=== PATIENT | female | born 1995 | race African-American/Black ===

== ENCOUNTER 2017-11-30 22:12 | Inpatient (IN) ==
[2017-11-30] MEDS ORDERED: BUTORPHANOL 2 MG/ML VIAL IV PRN (22:25)
[2017-11-30] MEDS ORDERED: ONDANSETRON 4 MG/2 ML VIAL IV PRN (22:25)
[2017-11-30 22:45] LABS: Basophils % 0.1 % (0.0-0.8); Eosinophils % 0.2 % (0.00-10.9); Hematocrit 33.5 VOL% (35.7-47.0); Hemoglobin 10.1 GM/DL (12.0-16.0); Immature Granulocytes % 1.1 %; Lymphocytes # 1.2 10*3/uL (1.4-4.0); Lymphocytes % 13.6 % (21.3-54.2); Mean Corpuscular HGB Conc 30.1 GM/DL (32-36); Mean Corpuscular Hemoglobin 24 PG (27-34); Mean Corpuscular Volume 79.8 FL (87-102); Mean Platelet Volume 10.3 FL (9.6-12.0); Monocytes # 0.8 10*3/uL (0.11-0.8); Monocytes % 8.4 % (1.7-12.7); NRBC # 0.03 10*3/uL; Neutrophils # 6.9 10*3/uL (1.4-7.4); Neutrophils % 76.6 % (38.7-73.9); Platelet Count 296 T/CUMM (130-400); Red Cell Distribution Width 15.9 % (9.3-17.3); White Blood Count 9.1 T/CUMM (4-12)
[2017-11-30] MEDS: LACTATED RINGERS 1,000 ML IV SCH (23:27)
[2017-11-30 23:34] LABS: Albumin 2.3 G/DL (3.4-5.0); Bilirubin,Total 0.4 MG/DL (0.2-1.0); Calcium 8.9 MG/DL (8.5-10.1); Osmolality,Calculated 274.5 MOS/KG (273-304); Potassium 3.8 MMOL/L (3.5-5.1); Total Protein 7.1 G/DL (6.4-8.3)
[2017-11-30 23:48] LABS: Apearance,Urine CLOUDY (Clear); Bacteria,Urine Occasional /HPF (Few); Blood, Urine Negative (Negative); Glucose,Urine (UA) Negative (Negative); Ketones,Urine 5 mg/dL (Negative); Mucus,Urine Many /LPF (Occasional); Nitrite,Urine Negative (Negative); Protein,Urine 100 MG/DL; RBC,Urine 31 /HPF (0-4); Squamous Epithelial Cell,Urine Few /HPF (0-10); Urine Color Amber (Yellow); Urine Specific Gravity 1.028 (1.001-1.035); WBC,Urine 24 /HPF (0-6)
[2017-11-30 23:50] LABS: Bilirubin,Urine Small mg/dL (Negative)
[2017-12-01] MEDS: MEPERIDINE 50 MG/1 ML VIAL IV PRN ×2 (09:19→12:24)
[2017-12-01] MEDS ORDERED: AMPICILLIN INJ 2,000 MG in SODIUM CHLORIDE 0.9% 100 ML IV SCH (10:00)
[2017-12-01] MEDS: LACTATED RINGERS 1,000 ML IV SCH (12:05)
[2017-12-01] MEDS ORDERED: OXYTOCIN/LR 20 UNIT/1,000 ML BAG IV ONE ×2 (12:40→13:13)
[2017-12-01] MEDS ORDERED: LIDOCAINE 1% 50 ML VIAL ONE (13:00)
[2017-12-01] MEDS ORDERED: RHO(D) IMMUNE GLOBULIN 300 MCG SYRINGE IM ONE (13:13)
[2017-12-01] MEDS ORDERED: MEASLES/MUMPS/RUBELLA VACCINE 0.5 ML VIAL SUBCUT ONE (13:13)
[2017-12-01] MEDS ORDERED: ACETAMINOPHEN 325 MG TABLET PO PRN (13:13)
[2017-12-01] MEDS ORDERED: DIPH/TET/ACEL PERT BOOSTER VACCINE 0.5 ML VIAL IM ONE (13:13)
[2017-12-01] MEDS ORDERED: WITCH HAZEL PADS 100/JAR TOP PRN (13:13)
[2017-12-01] MEDS ORDERED: LANOLIN 50% CREAM 0.3 OZ TUBE TOP PRN (13:13)
[2017-12-01] MEDS ORDERED: HYDROCORTISONE 2.5% RECTAL CREAM 30 GM TUBE TOP PRN (13:13)
[2017-12-01] MEDS ORDERED: BISACODYL 10 MG SUPP RECTAL PRN (13:13)
[2017-12-01] MEDS ORDERED: oxyCODONE/ACETAMINOPHEN 5-325 MG TABLET PO PRN (13:13)
[2017-12-01] MEDS ORDERED: BENZOCAINE 20%/MENTHOL 0.5% SPRAY 56 GM CAN TOP PRN (13:13)
[2017-12-01] MEDS ORDERED: ONDANSETRON 4 MG/2 ML VIAL IV PRN (13:13)
[2017-12-01 13:26] LABS: Cord Arterial Blood HCO3 18.6 MMOL/L
[2017-12-01 13:29] LABS: Cord Venous Blood HCO3 20.6 MMOL/L; Cord Venous Blood PO2 20.9
[2017-12-01] MEDS: oxyCODONE/ACETAMINOPHEN 5-325 MG TABLET PO PRN (17:09)
[2017-12-01] MEDS: IBUPROFEN 800 MG TABLET PO PRN (17:10)
[2017-12-01] MEDS: DOCUSATE SODIUM 100 MG CAPSULE PO SCH (20:52)
[2017-12-02 07:09] LABS: Basophils % 0.1 % (0.0-0.8); Eosinophils # 0.1 10*3/uL (0.0-0.87); Eosinophils % 0.6 % (0.00-10.9); Hematocrit 32.1 VOL% (35.7-47.0); Hemoglobin 9.7 GM/DL (12.0-16.0); Immature Granulocytes % 0.8 %; Immature Granulocytes Absolute 0.11 #; Lymphocytes # 2.1 10*3/uL (1.4-4.0); Lymphocytes % 15.9 % (21.3-54.2); Mean Corpuscular HGB Conc 30.2 GM/DL (32-36); Mean Corpuscular Hemoglobin 24 PG (27-34); Mean Corpuscular Volume 79.1 FL (87-102); Monocytes # 1.4 10*3/uL (0.11-0.8); Monocytes % 10.5 % (1.7-12.7); NRBC # 0.03 10*3/uL; Neutrophils # 9.6 10*3/uL (1.4-7.4); Neutrophils % 72.1 % (38.7-73.9); Platelet Count 260 T/CUMM (130-400); Red Blood Count 4.06 MC/CUMM (3.8-5.5); Red Cell Distribution Width 15.8 % (9.3-17.3); White Blood Count 13.4 T/CUMM (4-12)
[2017-12-02] MEDS: IBUPROFEN 800 MG TABLET PO PRN ×2 (07:38→22:06)
[2017-12-02] MEDS: oxyCODONE/ACETAMINOPHEN 5-325 MG TABLET PO PRN ×2 (07:39→22:07)
[2017-12-02] MEDS: DOCUSATE SODIUM 100 MG CAPSULE PO SCH ×2 (09:20→22:06)
[2017-12-03 07:19] VITALS: BP 123/69
[2017-12-03] MEDS: DOCUSATE SODIUM 100 MG CAPSULE PO SCH (09:43)
== END 2017-12-03 14:05 | disposition home or self-care (01) | DRG 560 ==
LOC: N.LDOUT 22:12 → N.LD 22:14 → N.OB 12-01 16:33
PROVIDERS: ADMIT Specialist; ATTEND Specialist

== ENCOUNTER 2018-09-21 12:45 | Inpatient (IN) ==
[2018-09-21] MEDS ORDERED: ceFAZolin 3,000 MG in SYRINGE 1 EACH IV ONE (13:15)
[2018-09-21] MEDS ORDERED: CITRIC ACID/SODIUM CITRATE 30 ML UDCUP PO ONE ×2 (13:15→13:22)
[2018-09-21] MEDS ORDERED: OXYTOCIN/LR 20 UNIT/1,000 ML BAG IV ONE ×2 (13:22→15:45)
[2018-09-21] MEDS ORDERED: LACTATED RINGERS 1,000 ML IV ONE ×2 (13:22→15:16)
[2018-09-21] MEDS ORDERED: FAMOTIDINE 20 MG/2 ML VIAL IV ONE (13:22)
[2018-09-21] MEDS ORDERED: LACTATED RINGERS 1,000 ML IV SCH ×2 (13:30)
[2018-09-21 13:53] LABS: Basophils % 0.2 % (0.0-0.8); Eosinophils % 0.5 % (0.00-10.9); Hematocrit 30.3 VOL% (35.7-47.0); Hemoglobin 8.7 GM/DL (12.0-16.0); Immature Granulocytes % 0.7 %; Immature Granulocytes Absolute 0.06 #; Lymphocytes # 1.3 10*3/uL (1.4-4.0); Lymphocytes % 15.8 % (21.3-54.2); Mean Corpuscular HGB Conc 28.7 GM/DL (32-36); Mean Corpuscular Hemoglobin 22 PG (27-34); Mean Corpuscular Volume 77.7 FL (87-102); Mean Platelet Volume 10.5 FL (9.6-12.0); Monocytes # 0.9 10*3/uL (0.11-0.8); Monocytes % 10.4 % (1.7-12.7); NRBC # 0.03 10*3/uL; Neutrophils # 6.1 10*3/uL (1.4-7.4); Neutrophils % 72.4 % (38.7-73.9); Platelet Count 247 T/CUMM (130-400); Red Cell Distribution Width 16.4 % (9.3-17.3); White Blood Count 8.4 T/CUMM (4-12)
[2018-09-21] MEDS ORDERED: SODIUM CHLORIDE 0.9% 1,000 ML IV PRN (13:57)
[2018-09-21 14:19] LABS: Albumin 2.4 G/DL (3.4-5.0); Bilirubin,Total 0.6 MG/DL (0.2-1.0); Calcium 8.6 MG/DL (8.5-10.1); Osmolality,Calculated 268.8 MOS/KG (273-304); Potassium 3.7 MMOL/L (3.5-5.1); Total Protein 6.8 G/DL (6.4-8.3)
[2018-09-21] MEDS ORDERED: MORPHINE 10 MG/10 ML VIAL ONE (15:15)
[2018-09-21] MEDS ORDERED: fentaNYL 100 MCG/2 ML VIAL ONE (15:15)
[2018-09-21] MEDS ORDERED: BUPIVACAINE SPINAL 0.75% 2 ML AMP SPINAL ONE (15:15)
[2018-09-21] MEDS ORDERED: ONDANSETRON 4 MG/2 ML VIAL ONE (15:16)
[2018-09-21] MEDS ORDERED: PHENYLEPHRINE 10 MG/1 ML VIAL IV ONE (15:16)
[2018-09-21] MEDS ORDERED: SODIUM CHLORIDE 0.9% 1,000 ML IV ONE (15:16)
[2018-09-21] MEDS ORDERED: ACETAMINOPHEN 1,000 MG/100 ML VIAL IV ONE (15:16)
[2018-09-21] MEDS ORDERED: METHYLERGONOVINE 0.2 MG/1 ML AMP ONE (15:18)
[2018-09-21 15:32] LABS: Cord Arterial Blood HCO3 23.2 MMOL/L
[2018-09-21] MEDS ORDERED: ACETAMINOPHEN 325 MG TABLET PO PRN (15:45)
[2018-09-21] MEDS ORDERED: HYDROCORTISONE 2.5% RECTAL CREAM 30 GM TUBE TOP PRN (15:45)
[2018-09-21] MEDS ORDERED: oxyCODONE/ACETAMINOPHEN 5-325 MG TABLET PO PRN (15:45)
[2018-09-21] MEDS ORDERED: BISACODYL 10 MG SUPP RECTAL PRN (15:45)
[2018-09-21] MEDS ORDERED: ONDANSETRON 4 MG/2 ML VIAL IV PRN (15:45)
[2018-09-21] MEDS ORDERED: MEASLES/MUMPS/RUBELLA VACCINE 0.5 ML VIAL SUBCUT ONE (15:45)
[2018-09-21] MEDS ORDERED: LANOLIN 50% CREAM 0.3 OZ TUBE TOP PRN (15:45)
[2018-09-21] MEDS ORDERED: WITCH HAZEL PADS 100/JAR TOP PRN (15:45)
[2018-09-21] MEDS ORDERED: BENZOCAINE 20%/MENTHOL 0.5% SPRAY 56 GM CAN TOP PRN (15:45)
[2018-09-21] MEDS ORDERED: DIPH/TET/ACEL PERT BOOSTER VACCINE 0.5 ML VIAL IM ONE (15:45)
[2018-09-21] MEDS ORDERED: RHO(D) IMMUNE GLOBULIN 300 MCG SYRINGE IM ONE (15:45)
[2018-09-21 15:46] LABS: Apearance,Urine Slightly Hazy (Clear); Bilirubin,Urine Negative (Negative); Blood, Urine Moderate mg/dL (Negative); Calcium Oxalate Crystals,Urine Occasional /HPF (Few); Glucose,Urine (UA) Negative (Negative); Ketones,Urine 80 mg/dL (Negative); Mucus,Urine Many /LPF (Occasional); Nitrite,Urine Negative (Negative); Protein,Urine 30 MG/DL; RBC,Urine 79 /HPF (0-4); Squamous Epithelial Cell,Urine Occasional /HPF (0-10); Urine Specific Gravity 1.023 (1.001-1.035); WBC,Urine 6 /HPF (0-6)
[2018-09-21 15:47] LABS: Urine Color Yellow (Yellow)
[2018-09-21 15:51] LABS: Microcytosis 1+; Polychromasia Few
[2018-09-21 15:52] LABS: Hypochromasia 2+; Platelet Estimate Normal
[2018-09-21 15:53] LABS: Anisocytosis 1+
[2018-09-21 15:56] LABS: Cord Arterial Blood HCO3 23.8 MMOL/L
[2018-09-21] MEDS ORDERED: diphenhydrAMINE 50 MG/1 ML VIAL IV PRN (18:28)
[2018-09-21] MEDS: ceFAZolin 1,000 MG in SYRINGE 1 EACH IV SCH (21:39)
[2018-09-21 22:11] LABS: Basophils % 0.2 % (0.0-0.8); Eosinophils % 0.1 % (0.00-10.9); Hematocrit 30.9 VOL% (35.7-47.0); Hemoglobin 8.8 GM/DL (12.0-16.0); Immature Granulocytes % 0.8 %; Immature Granulocytes Absolute 0.12 #; Lymphocytes # 1.3 10*3/uL (1.4-4.0); Lymphocytes % 8.7 % (21.3-54.2); Mean Corpuscular HGB Conc 28.5 GM/DL (32-36); Mean Corpuscular Hemoglobin 23 PG (27-34); Mean Corpuscular Volume 80.3 FL (87-102); Mean Platelet Volume 10.3 FL (9.6-12.0); Monocytes # 1.4 10*3/uL (0.11-0.8); Monocytes % 9.3 % (1.7-12.7); NRBC # 0.03 10*3/uL; Neutrophils % 80.9 % (38.7-73.9); Platelet Count 209 T/CUMM (130-400); Red Blood Count 3.85 MC/CUMM (3.8-5.5); Red Cell Distribution Width 16.3 % (9.3-17.3); White Blood Count 14.8 T/CUMM (4-12)
[2018-09-21] MEDS: DOCUSATE SODIUM 100 MG CAPSULE PO SCH (22:40)
[2018-09-21 22:44] LABS: Anisocytosis 1+; Hypochromasia 1+; Polychromasia Slight
[2018-09-21 22:45] LABS: Platelet Estimate Normal
[2018-09-21] MEDS ORDERED: diphenhydrAMINE 50 MG/1 ML VIAL ONE (23:37)
[2018-09-22] MEDS: diphenhydrAMINE 50 MG/1 ML VIAL IV PRN ×2 (00:22→04:50)
[2018-09-22] MEDS: oxyCODONE/ACETAMINOPHEN 5-325 MG TABLET PO PRN ×3 (04:50→18:39)
[2018-09-22] MEDS: IBUPROFEN 800 MG TABLET PO PRN ×3 (04:50→18:39)
[2018-09-22 05:19] LABS: Basophils % 0.1 % (0.0-0.8); Eosinophils % 0.1 % (0.00-10.9); Hematocrit 26.7 VOL% (35.7-47.0); Hemoglobin 7.9 GM/DL (12.0-16.0); Immature Granulocytes % 0.9 %; Immature Granulocytes Absolute 0.12 #; Lymphocytes # 1.4 10*3/uL (1.4-4.0); Lymphocytes % 9.7 % (21.3-54.2); Mean Corpuscular HGB Conc 29.6 GM/DL (32-36); Mean Corpuscular Hemoglobin 24 PG (27-34); Mean Corpuscular Volume 79.5 FL (87-102); Monocytes # 1.6 10*3/uL (0.11-0.8); Monocytes % 11.4 % (1.7-12.7); NRBC # 0.03 10*3/uL; Neutrophils # 10.8 10*3/uL (1.4-7.4); Neutrophils % 77.8 % (38.7-73.9); Platelet Count 190 T/CUMM (130-400); Red Blood Count 3.36 MC/CUMM (3.8-5.5); Red Cell Distribution Width 16.2 % (9.3-17.3); White Blood Count 13.9 T/CUMM (4-12)
[2018-09-22] MEDS: ceFAZolin 1,000 MG in SYRINGE 1 EACH IV SCH (06:28)
[2018-09-22] MEDS ORDERED: HydrOXYzine PAMOATE 25 MG CAPSULE PO PRN (08:20)
[2018-09-22] MEDS: DOCUSATE SODIUM 100 MG CAPSULE PO SCH ×2 (10:00→21:51)
[2018-09-22] MEDS: SIMETHICONE CHEW 80 MG TABLET PO PRN (11:18)
[2018-09-22] MEDS: MAGNESIUM HYDROXIDE SUSP 30 ML UDCUP PO PRN ×2 (11:18→21:51)
[2018-09-22] MEDS: FERROUS SULFATE 325 MG TABLET PO SCH ×2 (15:46→21:51)
[2018-09-23] MEDS: oxyCODONE/ACETAMINOPHEN 5-325 MG TABLET PO PRN ×4 (03:42→21:23)
[2018-09-23] MEDS: SIMETHICONE CHEW 80 MG TABLET PO PRN (08:14)
[2018-09-23] MEDS: MAGNESIUM HYDROXIDE SUSP 30 ML UDCUP PO PRN ×2 (08:14→21:20)
[2018-09-23] MEDS: IBUPROFEN 800 MG TABLET PO PRN ×2 (08:14→14:14)
[2018-09-23] MEDS: FERROUS SULFATE 325 MG TABLET PO SCH ×2 (08:14→21:20)
[2018-09-23] MEDS: DOCUSATE SODIUM 100 MG CAPSULE PO SCH ×2 (08:14→21:20)
[2018-09-23] MEDS ORDERED: oxyCODONE/ACETAMINOPHEN 5-325 MG TABLET PO PRN (08:17)
[2018-09-24] MEDS: oxyCODONE/ACETAMINOPHEN 5-325 MG TABLET PO PRN ×2 (03:00→09:11)
[2018-09-24 08:29] VITALS: BP 132/69
[2018-09-24] MEDS: DOCUSATE SODIUM 100 MG CAPSULE PO SCH (09:04)
[2018-09-24] MEDS: SIMETHICONE CHEW 80 MG TABLET PO PRN (09:05)
[2018-09-24] MEDS: MAGNESIUM HYDROXIDE SUSP 30 ML UDCUP PO PRN (09:06)
[2018-09-24] MEDS: FERROUS SULFATE 325 MG TABLET PO SCH (09:06)
[2018-09-24] MEDS: IBUPROFEN 800 MG TABLET PO PRN (09:09)
== END 2018-09-24 14:32 | disposition home or self-care (01) | DRG 540 ==
LOC: N.LDOUT 12:45 → N.LD 12:48 → N.OB 19:20
PROVIDERS: ADMIT Specialist; ATTEND Specialist
PROC: LDCSECT (ICD-10-PCS; 2018-09-21 14:00)

== ENCOUNTER 2020-03-11 02:38 | Inpatient (IN) ==
[2020-03-11 03:04] LABS: Basophils % 0.2 % (0.0-0.8); Eosinophils # 0.1 10*3/uL (0.0-0.87); Eosinophils % 0.6 % (0.00-10.9); Immature Granulocytes % 0.5 %; Immature Granulocytes Absolute 0.05 #; Lymphocytes # 2.1 10*3/uL (1.4-4.0); Lymphocytes % 20.5 % (21.3-54.2); Mean Corpuscular HGB Conc 28.2 GM/DL (32-36); Mean Corpuscular Volume 77.3 FL (87-102); Mean Platelet Volume 9.8 FL (9.6-12.0); Monocytes % 9.4 % (1.7-12.7); NRBC # 0.03 10*3/uL; Neutrophils % 68.8 % (38.7-73.9); Platelet Count 283 T/CUMM (130-400); Red Cell Distribution Width 16.4 % (9.3-17.3)
[2020-03-11] MEDS ORDERED: DILTIAZEM 50 MG/10 ML VIAL IV STA (03:10)
[2020-03-11] MEDS ORDERED: SODIUM CHLORIDE 0.9% 1,000 ML IV STA (03:11)
[2020-03-11 03:13] LABS: Hematocrit 33.6 VOL% (35.7-47.0); Hemoglobin 9.7 GM/DL (12.0-16.0)
[2020-03-11 03:24] LABS: INR 0.9; PT Patient Result 9.9 SECS (9.8-11.9); Partial Thromboplastin Time 26.4 SECS (23.9-33.8)
[2020-03-11 03:28] LABS: Alanine Aminotransferase 25 U/L (13-56); Albumin 2.5 G/DL (3.4-5.0); Alkaline Phosphatase 181 U/L (45-117); Aspartate Amino Transferase 16 U/L (0-37); Bilirubin,Total < 0.39 MG/DL (0.2-1.0); Blood Urea Nitrogen 8 MG/DL (7-18); Calcium 8.9 MG/DL (8.5-10.1); Estimated Glom Filtration Rate 214 ML/MIN; Glucose 124 MG/DL (74-106); Osmolality,Calculated 275.5 MOS/KG (273-304); Total Protein 6.8 G/DL (6.4-8.3)
[2020-03-11] MEDS ORDERED: DILTIAZEM INJ 100 MG in SODIUM CHLORIDE 0.9% 100 ML IV SCH (03:30)
[2020-03-11] MEDS ORDERED: ONDANSETRON 4 MG/2 ML VIAL ONE (03:53)
[2020-03-11] MEDS ORDERED: ONDANSETRON 4 MG/2 ML VIAL IV STA ×2 (03:58→04:34)
[2020-03-11] MEDS ORDERED: MIDAZOLAM 2 MG/2 ML VIAL IV STA (04:33)
[2020-03-11] MEDS ORDERED: MORPHINE 4 MG/1 ML VIAL IV STA (04:34)
[2020-03-11] MEDS ORDERED: LABETALOL 20 MG/4 ML SYRINGE IV ONE (04:43)
[2020-03-11] MEDS ORDERED: LABETALOL 20 MG/4 ML SYRINGE IV STA (04:43)
[2020-03-11] MEDS ORDERED: ONDANSETRON 4 MG/2 ML VIAL IV PRN ×2 (05:04→05:11)
[2020-03-11] MEDS ORDERED: ACETAMINOPHEN 325 MG TABLET PO PRN (05:11)
[2020-03-11 05:43] LABS: Bacteria,Urine Few /HPF (Few); Bilirubin,Urine Negative (Negative); Blood, Urine Negative (Negative); Glucose,Urine (UA) Negative (Negative); Ketones,Urine 5 mg/dL (Negative); Mucus,Urine Many /LPF (Occasional); Nitrite,Urine Negative (Negative); Protein,Urine 30 MG/DL; RBC,Urine 10 /HPF (0-4); Squamous Epithelial Cell,Urine Occasional /HPF (0-10); Urine Appearance Slightly Hazy (Clear); Urine Color Yellow (Yellow); Urine Specific Gravity 1.025 (1.001-1.035); WBC,Urine 6 /HPF (0-6)
[2020-03-11 05:49] LABS: Barbiturates Screen,Urine Negative (Negative); Benzodiazepines Screen,Urine Positive (Negative); Cannabinoid Screen,Urine Negative (Negative); Opiate Screen,Urine Positive (Negative); Phencyclidine Screen,Urine Negative (Negative)
[2020-03-11] MEDS: SODIUM CHLORIDE 0.9% 1,000 ML IV SCH ×2 (05:57→13:17)
[2020-03-11] MEDS: METOPROLOL TARTRATE 25 MG TABLET PO SCH ×2 (09:44→21:03)
[2020-03-11] MEDS: PANTOPRAZOLE 40 MG TABLET PO SCH (17:43)
[2020-03-12] MEDS: SODIUM CHLORIDE 0.9% 1,000 ML IV SCH ×2 (02:31→09:24)
[2020-03-12 07:18] LABS: Basophils % 0.2 % (0.0-0.8); Calcium 8.4 MG/DL (8.5-10.1); Eosinophils # 0.1 10*3/uL (0.0-0.87); Eosinophils % 1.2 % (0.00-10.9); Hematocrit 28.8 VOL% (35.7-47.0); Immature Granulocytes % 0.6 %; Immature Granulocytes Absolute 0.05 #; Lymphocytes # 1.9 10*3/uL (1.4-4.0); Lymphocytes % 22.2 % (21.3-54.2); Mean Corpuscular HGB Conc 29.2 GM/DL (32-36); Mean Platelet Volume 9.8 FL (9.6-12.0); NRBC # 0.03 10*3/uL; Neutrophils % 64.8 % (38.7-73.9); Osmolality,Calculated 271.7 MOS/KG (273-304); Platelet Count 234 T/CUMM (130-400); Red Blood Count 3.79 MC/CUMM (3.8-5.5); Red Cell Distribution Width 16.7 % (9.3-17.3); White Blood Count 8.5 T/CUMM (4-12)
[2020-03-12 07:19] LABS: Hemoglobin 8.4 GM/DL (12.0-16.0)
[2020-03-12 07:26] LABS: Hypochromasia 1+; Microcytosis 1+; Platelet Estimate Adequate
[2020-03-12 08:13] VITALS: BP 101/58
[2020-03-12] MEDS ORDERED: MED PO SCH (09:00)
[2020-03-12] MEDS ORDERED: ASPIRIN EC 81 MG TABLET PO SCH (09:00)
[2020-03-12] MEDS ORDERED: METOPROLOL TARTRATE 25 MG TABLET PO SCH (09:00)
[2020-03-12] MEDS: PANTOPRAZOLE 40 MG TABLET PO SCH (09:26)
== END 2020-03-12 13:33 | disposition home or self-care (01) | DRG 566 ==
LOC: N.ED 02:38 → N.EDINP 05:10 → N.ICU 05:30 → N.TELEN 13:23
PROVIDERS: ADMIT Specialist; ATTEND Specialist

== ENCOUNTER 2020-04-14 04:23 | Inpatient (IN) ==
[2020-04-14] MEDS ORDERED: ONDANSETRON 4 MG/2 ML VIAL IV PRN ×2 (04:58→09:23)
[2020-04-14] MEDS ORDERED: BUTORPHANOL 2 MG/ML VIAL IV PRN (04:58)
[2020-04-14] MEDS ORDERED: MEPERIDINE 50 MG/1 ML VIAL IV PRN (04:58)
[2020-04-14] MEDS: LACTATED RINGERS 1,000 ML IV SCH ×2 (05:00→13:40)
[2020-04-14 05:20] LABS: Basophils % 0.2 % (0.0-0.8); Eosinophils # 0.1 10*3/uL (0.0-0.87); Eosinophils % 0.5 % (0.00-10.9); Hematocrit 30.3 VOL% (35.7-47.0); Hemoglobin 8.8 GM/DL (12.0-16.0); Immature Granulocytes % 1.1 %; Lymphocytes # 1.6 10*3/uL (1.4-4.0); Lymphocytes % 17.3 % (21.3-54.2); Mean Corpuscular Volume 74.4 FL (87-102); Mean Platelet Volume 9.6 FL (9.6-12.0); Monocytes % 11.4 % (1.7-12.7); NRBC # 0.08 10*3/uL; Neutrophils % 69.5 % (38.7-73.9); Platelet Count 266 T/CUMM (130-400); Red Blood Count 4.07 MC/CUMM (3.8-5.5); Red Cell Distribution Width 17.9 % (9.3-17.3); White Blood Count 9.4 T/CUMM (4-12)
[2020-04-14] MEDS ORDERED: CITRIC ACID/SODIUM CITRATE 30 ML UDCUP PO PRN (05:26)
[2020-04-14] MEDS ORDERED: FAMOTIDINE 20 MG/2 ML VIAL IV PRN (05:27)
[2020-04-14] MEDS ORDERED: ceFAZolin 3,000 MG in SYRINGE 1 EACH IV PRN (05:28)
[2020-04-14 05:41] LABS: Albumin 2.2 G/DL (3.4-5.0); Bilirubin,Total 0.4 MG/DL (0.2-1.0); Calcium 8.7 MG/DL (8.5-10.1); Osmolality,Calculated 273.7 MOS/KG (273-304)
[2020-04-14] MEDS ORDERED: ePHEDrine 50 MG/ML VIAL ONE (06:05)
[2020-04-14] MEDS ORDERED: fentaNYL 2 MCG/ROPIV 0.2% EPID 100 ML EPIDURAL ONE (06:06)
[2020-04-14] MEDS ORDERED: fentaNYL 2 MCG/ROPIV 0.2% EPID 100 ML EPIDURAL SCH (06:40)
[2020-04-14] MEDS ORDERED: TRANEXAMIC ACID 1,000 MG/10 ML VIAL ONE ×3 (08:24→08:45)
[2020-04-14] MEDS ORDERED: miSOPROStoL 200 MCG TABLET ONE ×2 (08:24→08:43)
[2020-04-14] MEDS ORDERED: SODIUM CHLORIDE 0.9% 0 ML IV ONE ×2 (08:25→08:45)
[2020-04-14] MEDS ORDERED: OXYTOCIN/LR 20 UNIT/1,000 ML BAG IV ONE ×2 (08:43→09:23)
[2020-04-14] MEDS ORDERED: METHYLERGONOVINE 0.2 MG/1 ML AMP ONE (08:43)
[2020-04-14] MEDS ORDERED: CARBOPROST TROMETHAMINE 250 MCG/ML AMP IM ONE (08:44)
[2020-04-14] MEDS ORDERED: MEASLES/MUMPS/RUBELLA VACCINE 0.5 ML VIAL SUBCUT ONE (09:23)
[2020-04-14] MEDS ORDERED: RHO(D) IMMUNE GLOBULIN 300 MCG SYRINGE IM ONE (09:23)
[2020-04-14] MEDS ORDERED: HYDROCORTISONE 2.5% RECTAL CREAM 30 GM TUBE TOP PRN (09:23)
[2020-04-14] MEDS ORDERED: BENZOCAINE 20%/MENTHOL 0.5% SPRAY 56 GM CAN TOP PRN (09:23)
[2020-04-14] MEDS ORDERED: WITCH HAZEL PADS 100/JAR TOP PRN (09:23)
[2020-04-14] MEDS ORDERED: LANOLIN 50% CREAM 0.3 OZ TUBE TOP PRN (09:23)
[2020-04-14] MEDS ORDERED: BISACODYL 10 MG SUPP RECTAL PRN (09:23)
[2020-04-14] MEDS ORDERED: ACETAMINOPHEN 325 MG TABLET PO PRN (09:23)
[2020-04-14] MEDS ORDERED: DIPH/TET/ACEL PERT BOOSTER VACCINE 0.5 ML VIAL IM ONE (09:23)
[2020-04-14] MEDS ORDERED: oxyCODONE/ACETAMINOPHEN 5-325 MG TABLET PO PRN (09:23)
[2020-04-14 09:25] LABS: Cord Arterial Blood HCO3 20.8 MMOL/L
[2020-04-14 09:26] LABS: Bilirubin,Urine Negative (Negative); Blood, Urine Negative (Negative); Glucose,Urine (UA) Negative (Negative); Ketones,Urine Negative (Negative); Mucus,Urine Few /LPF (Occasional); Nitrite,Urine Negative (Negative); Protein,Urine 30 MG/DL; RBC,Urine <1 /HPF (0-4); Urine Appearance CLEAR (Clear); Urine Color Yellow (Yellow); Urine Specific Gravity 1.024 (1.001-1.035); WBC,Urine <1 /HPF (0-6)
[2020-04-14 09:29] LABS: Cord Venous Blood HCO3 21.1 MMOL/L; Cord Venous Blood PCO2 40.1 MMHG; Cord Venous Blood PO2 26.7
[2020-04-14 09:32] LABS: Cord Venous Blood HCO3 18.1 MMOL/L; Cord Venous Blood PCO2 63.9 MMHG; Cord Venous Blood PO2 21.4
[2020-04-14] MEDS ORDERED: hydrOXYzine HCL 25 MG/1 ML VIAL IM ONE (10:05)
[2020-04-14] MEDS: METOPROLOL TARTRATE 50 MG TABLET PO SCH ×2 (12:28→23:27)
[2020-04-14] MEDS: oxyCODONE/ACETAMINOPHEN 5-325 MG TABLET PO PRN ×2 (13:20→21:08)
[2020-04-14] MEDS: IBUPROFEN 800 MG TABLET PO PRN (18:15)
[2020-04-14] MEDS: DOCUSATE SODIUM 100 MG CAPSULE PO SCH (21:08)
[2020-04-15 05:37] LABS: Basophils % 0.3 % (0.0-0.8); Eosinophils # 0.2 10*3/uL (0.0-0.87); Eosinophils % 1.5 % (0.00-10.9); Hematocrit 29.6 VOL% (35.7-47.0); Immature Granulocytes % 0.6 %; Immature Granulocytes Absolute 0.08 #; Lymphocytes # 2.4 10*3/uL (1.4-4.0); Lymphocytes % 19.4 % (21.3-54.2); Mean Corpuscular HGB Conc 29.1 GM/DL (32-36); Mean Corpuscular Volume 75.3 FL (87-102); Mean Platelet Volume 9.9 FL (9.6-12.0); Monocytes % 9.8 % (1.7-12.7); NRBC # 0.02 10*3/uL; Neutrophils % 68.4 % (38.7-73.9); Platelet Count 231 T/CUMM (130-400); Red Blood Count 3.93 MC/CUMM (3.8-5.5); Red Cell Distribution Width 18.2 % (9.3-17.3); White Blood Count 12.4 T/CUMM (4-12)
[2020-04-15 05:38] LABS: Hemoglobin 8.6 GM/DL (12.0-16.0)
[2020-04-15 05:46] LABS: Hypochromasia 1+; Microcytosis 1+; Platelet Estimate Adequate
[2020-04-15] MEDS: oxyCODONE/ACETAMINOPHEN 5-325 MG TABLET PO PRN ×3 (06:13→22:40)
[2020-04-15] MEDS: METOPROLOL TARTRATE 50 MG TABLET PO SCH ×2 (08:42→21:00)
[2020-04-15] MEDS: DOCUSATE SODIUM 100 MG CAPSULE PO SCH ×2 (08:42→21:00)
[2020-04-15] MEDS: IBUPROFEN 800 MG TABLET PO PRN (22:40)
[2020-04-16] MEDS: DOCUSATE SODIUM 100 MG CAPSULE PO SCH (07:59)
[2020-04-16] MEDS: METOPROLOL TARTRATE 50 MG TABLET PO SCH (08:00)
[2020-04-16] MEDS: oxyCODONE/ACETAMINOPHEN 5-325 MG TABLET PO PRN (08:00)
[2020-04-16] MEDS: IBUPROFEN 800 MG TABLET PO PRN (08:01)
[2020-04-16 08:22] VITALS: BP 136/85
== END 2020-04-16 14:00 | disposition home or self-care (01) | DRG 560 ==
LOC: N.LDOUT 04:23 → N.LD 04:26 → N.OB 12:59
PROVIDERS: ADMIT Specialist; ATTEND Specialist

== ENCOUNTER 2021-04-23 11:18 | Inpatient (IN) ==
[2021-04-23] MEDS ORDERED: BUTORPHANOL 2 MG/ML VIAL IV ONE (11:40)
[2021-04-23] MEDS ORDERED: CARBOPROST TROMETHAMINE 250 MCG/ML AMP IM ONE (11:41)
[2021-04-23] MEDS ORDERED: OXYTOCIN/LR 20 UNIT/1,000 ML BAG IV ONE ×2 (11:41→12:57)
[2021-04-23] MEDS ORDERED: TRANEXAMIC ACID 1,000 MG/10 ML VIAL ONE (11:41)
[2021-04-23] MEDS ORDERED: miSOPROStoL 200 MCG TABLET ONE (11:41)
[2021-04-23] MEDS ORDERED: METHYLERGONOVINE 0.2 MG/1 ML AMP ONE (11:41)
[2021-04-23] MEDS ORDERED: SODIUM CHLORIDE 0.9% 0 ML IV ONE (11:41)
[2021-04-23] MEDS ORDERED: MEPERIDINE 50 MG/1 ML VIAL IV ONE (12:03)
[2021-04-23 12:05] LABS: Cord Venous Blood HCO3 22.7 MMOL/L; Cord Venous Blood PCO2 43.4 MMHG; Cord Venous Blood PO2 26.3 MMHG
[2021-04-23] MEDS ORDERED: ONDANSETRON 4 MG/2 ML VIAL IV PRN ×2 (12:34→12:57)
[2021-04-23] MEDS ORDERED: ACETAMINOPHEN 325 MG TABLET PO PRN (12:57)
[2021-04-23] MEDS ORDERED: RHO(D) IMMUNE GLOBULIN 300 MCG SYRINGE IM ONE (12:57)
[2021-04-23] MEDS ORDERED: MEASLES/MUMPS/RUBELLA VACCINE 0.5 ML VIAL SUBCUT ONE (12:57)
[2021-04-23] MEDS ORDERED: BENZOCAINE 20%/MENTHOL 0.5% SPRAY 56 GM CAN TOP PRN (12:57)
[2021-04-23] MEDS ORDERED: BISACODYL 10 MG SUPP RECTAL PRN (12:57)
[2021-04-23] MEDS ORDERED: HYDROCORTISONE 2.5% RECTAL CREAM 30 GM TUBE TOP PRN (12:57)
[2021-04-23] MEDS ORDERED: oxyCODONE/ACETAMINOPHEN 5-325 MG TABLET PO PRN (12:57)
[2021-04-23] MEDS ORDERED: DIPH/TET/ACEL PERT BOOSTER VACCINE 0.5 ML VIAL IM ONE (12:57)
[2021-04-23] MEDS ORDERED: WITCH HAZEL PADS 100/JAR TOP PRN (12:57)
[2021-04-23] MEDS ORDERED: LANOLIN 50% CREAM 0.3 OZ TUBE TOP PRN (12:57)
[2021-04-23] MEDS ORDERED: LACTATED RINGERS 1,000 ML IV SCH (13:00)
[2021-04-23 13:31] LABS: Basophils % 0.2 % (0.0-0.8); Eosinophils % 0.1 % (0.00-10.9); Hematocrit 34.4 VOL% (35.7-47.0); Immature Granulocytes % 0.8 %; Immature Granulocytes Absolute 0.11 #; Lymphocytes # 1.1 10*3/uL (1.4-4.0); Lymphocytes % 8.4 % (21.3-54.2); Mean Corpuscular HGB Conc 29.1 GM/DL (32-36); Mean Corpuscular Volume 79.4 FL (87-102); Mean Platelet Volume 9.8 FL (9.6-12.0); Monocytes % 5.7 % (1.7-12.7); Neutrophils % 84.8 % (38.7-73.9); Platelet Count 287 T/CUMM (130-400); Red Blood Count 4.33 MC/CUMM (3.8-5.5); Red Cell Distribution Width 16.6 % (9.3-17.3); White Blood Count 13.3 T/CUMM (4-12)
[2021-04-23] MEDS: IBUPROFEN 800 MG TABLET PO PRN (14:09)
[2021-04-23] MEDS: oxyCODONE/ACETAMINOPHEN 5-325 MG TABLET PO PRN (19:35)
[2021-04-23] MEDS: DOCUSATE SODIUM 100 MG CAPSULE PO SCH (19:35)
[2021-04-24] MEDS: oxyCODONE/ACETAMINOPHEN 5-325 MG TABLET PO PRN (01:32)
[2021-04-24] MEDS: IBUPROFEN 800 MG TABLET PO PRN ×2 (01:32→18:30)
[2021-04-24] MEDS: DOCUSATE SODIUM 100 MG CAPSULE PO SCH ×3 (02:11→21:29)
[2021-04-24] MEDS ORDERED: BENZOCAINE/MENTHOL LOZENGE 18/BOX PO PRN (03:47)
[2021-04-24] MEDS ORDERED: SODIUM CHLORIDE 0.65% NASAL SPRAY 45 ML BOTTLE BOTH NARES PRN (06:28)
[2021-04-24 06:50] LABS: Basophils % 0.3 % (0.0-0.8); Eosinophils # 0.1 10*3/uL (0.0-0.87); Eosinophils % 0.8 % (0.00-10.9); Hematocrit 31.6 VOL% (35.7-47.0); Hemoglobin 9.4 GM/DL (12.0-16.0); Immature Granulocytes % 0.5 %; Immature Granulocytes Absolute 0.06 #; Lymphocytes # 2.3 10*3/uL (1.4-4.0); Lymphocytes % 17.8 % (21.3-54.2); Mean Corpuscular HGB Conc 29.7 GM/DL (32-36); Mean Corpuscular Volume 81.4 FL (87-102); Mean Platelet Volume 10.6 FL (9.6-12.0); Neutrophils % 70.6 % (38.7-73.9); Platelet Count 250 T/CUMM (130-400); Red Blood Count 3.88 MC/CUMM (3.8-5.5); Red Cell Distribution Width 16.6 % (9.3-17.3); White Blood Count 12.6 T/CUMM (4-12)
[2021-04-24 07:01] LABS: Anisocytosis 1+; Platelet Estimate Normal
[2021-04-25] MEDS: IBUPROFEN 800 MG TABLET PO PRN (04:04)
[2021-04-25] MEDS: DOCUSATE SODIUM 100 MG CAPSULE PO SCH (08:38)
[2021-04-25 08:56] VITALS: BP 119/64
== END 2021-04-25 13:45 | disposition home or self-care (01) | DRG 560 ==
LOC: N.LDOUT 11:18 → N.LD 11:21 → N.OB 14:27
PROVIDERS: ADMIT Specialist; ATTEND Specialist